=== PATIENT | male | born 1960 | race African-American/Black ===

== ENCOUNTER 2017-04-17 08:57 | Emergency (ER) | payer SELFPAY ==
[~2017-04-17] VITALS: Ht 182.9 cm; Wt 108.9 kg
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
[~2017-04-17 08:57] MED LIST: NO MEDICATIONS; ZITHROMAX PO
[2017-04-17] MEDS ORDERED: MOTRIN600 MG (09:03)
== END 2017-04-17 09:48 | disposition home or self-care (01) ==
LOC: SED 08:57
DX: L02.01 Cutaneous abscess of face (principal)
CPT/HCPCS: 70110; 99283